=== PATIENT | female | born 2000 | race Caucasian/White ===

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

== ENCOUNTER 2020-04-27 12:43 | Emergency (ER) | payer OTHER ==
[2020-04-27 12:48] VITALS: RESP 18
[2020-04-27] MEDS ORDERED: SODIUM CHLORIDE 0.9% 1,000 ML IV STA ×2 (13:00)
[2020-04-27] MEDS ORDERED: ONDANSETRON 4 MG/2 ML VIAL IVP STA (13:00)
[2020-04-27] MEDS ORDERED: MORPHINE SULFATE 4 MG/ML SYRINGE IV STA (13:00)
--- NOTE | 2020-04-27 13:05 | ED ---
Abdominal Pain HPI - General Chief Complaint: Abdominal Pain Stated Complaint: Abd Pain Time Seen by Provider: 04/27/20 12:55 Source: patient Mode of arrival: ambulatory Limitations: no limitations - History of Present Illness Initial Comments: This 20-year-old female presents with a complaint of some right upper quadrant to mid epigastric abdominal pain. She has had this intermittently over the last 4 months. She states that it was diagnosed while she was . She delivered on March 27 and has had the episodes approximately 4 times since. She was diagnosed with gallstones through [facility]. She was told that she could not have surgery while she is . She's been working with a surgeon out of [facility] to have her gallbladder removed. She was told that she could potentially have surgery on Thursday, 3 days from now but the pain became severe today so she came to our hospital. She has had occasi onal nausea but no vomiting. No fevers or chills. No urinary symptoms. She has tried Motrin 600 mg without any relief. No other complaints or modifying factors. - Related Data Previous Rx's Medication Instructions Recorded Hydrocodone/Acetaminophen [Hycet 10 ml PO Q4HR PRN 3 Days #200 ml 04/27/20 7.5 mg-325 mg/15 ml Soln] Ondansetron [Zofran] 4 mg PO Q8HR PRN #12 tab 04/27/20 Sulfamethox-Tmp 800-160Mg [Bactrim 1 tab PO Q12HR #20 tab 04/27/20 DS 800-160 mg] Allergies Allergy/AdvReac Type Severity Reaction Status Date / Time No Known Allergies Allergy Verified 04/27/20 13:21 Review of Systems ROS Statement: Those systems with pertinent positive or pertinent negative responses have been documented in the HPI. ROS Other: All systems not noted in ROS Statement are negative. Past Medical History Past Medical History: No Reported History Additional Past Medical History / Comment(s): gall stones History of Any Multi-Drug Resistant Organisms: None Reported Past Surgical History: No Surgical Hx Reported Past Psychological History: No Psychological Hx Reported Smoking Status: Never smoker Past Alcohol Use History: None Reported Past Drug Use History: None Reported General Exam - General Exam Comments Initial Comments: GENERAL: The patient is well nourished and well hydrated. VITAL SIGNS: Heart rate, blood pressure, respiratory rate reviewed as recorded in nurse's notes. EYES: Pupils are round and reactive. Extraocular movements are intact. No conjunctival / lid redness or swelling. ENT: No external evidence of injury, swelling, or ecchymosis. Airway is patent. Throat is clear. NECK: Nontender. No swelling or evidence of injury. No subcutaneous emphysema. Trachea is midline. No thyroid mass. HEART: Regular rate and rhythm. Good peripheral pulses. LUNGS/CHEST: Breath sounds clear and equal bilaterally. No rales, rhonchi, or wheezes. No ecchymosis, subcutaneous emphysema, or tenderness. ABDOMEN: There is some mild tenderness noted into the right upper quadrant. No palpable masses or organomegaly. No peritoneal signs. No abdominal wall swelling or ecchymosis. EXTREMITIES: No extremity tenderness. Normal muscle tone and function. No thoracolumbar tenderness. NEUROLOGIC: Sensation is grossly intact. Cranial nerve exam reveals face is symmetrical, tongue is midline, speech is clear. SKIN: No abrasions or ecchymosis is noted. No induration or masses noted. PSYCHIATRIC: Alert and oriented. Appropriate behavior and judgment. Limitations: no limitations Course Vital Signs 04/27/20 12:43 Temperature 98.9 F Pulse Rate 79 Respiratory 18 Rate Blood Pressure 137/53 O2 Sat by Pulse 97 Oximetry Medical Decision Making - Medical Decision Making The patient was seen and examined. All diagnostics were reviewed. An IV is established and she is hydrated. She receives morphine 4 mg IV and Zofran 4 mg IV and has moderate to significant relief. The laboratory shows slight elevation of the transaminase levels. Remainder of labs are essentially within normal limits. The urinalysis also does show evidence of a urinary tract infection. is negative. The ultrasound shows evidence of gallstones. There is no dilation of the common bile duct, pericholecystic fluid, or gallbladder wall thickening. Overall, it is felt as though she is stable for discharge. She states that she has a surgeon through [facility] and they're planning on taking her gallbladder out on Thursday, in 3 days. It is felt as though she should continue with this plan. Symptomatic treatment will be prescribed for the weekend. Return parameters discussed. - Lab Data Result diagrams: 04/27/20 13:25 04/27/20 13:25 Lab Results 04/27/20 04/27/20 04/27/20 Range/Units 13:25 13:25 13:25 WBC 7.5 (4.0-11.0) k/uL RBC 4.40 (3.80-5.40) m/uL Hgb 12.0 (11.4-16.0) gm/dL Hct 37.5 (34.0-46.0) % MCV 85.2 (80.0-100.0) fL MCH 27.3 (25.0-35.0) pg MCHC 32.1 (31.0-37.0) g/dL RDW 13.6 (11.5-15.5) % Plt Count 349 (150-450) k/uL MPV 7.4 Neutrophils % 66 % Lymphocytes % 24 % Monocytes % 5 % Eosinophils % 2 % Basophils % 1 % Neutrophils # 4.9 (1.3-7.7) k/uL Lymphocytes # 1.8 (1.0-4.8) k/uL Monocytes # 0.4 (0-1.0) k/uL Eosinophils # 0.2 (0-0.7) k/uL Basophils # 0.1 (0-0.2) k/uL Hypochromasia Slight Sodium (137-145) mmol/L Potassium (3.5-5.1) mmol/L Chloride (98-107) mmol/L Carbon Dioxide (22-30) mmol/L Anion Gap mmol/L BUN (7-17) mg/dL Creatinine (0.52-1.04) mg/dL Est GFR (CKD-EPI)AfAm (>60 ml/min/1.73 sqM) Est GFR (CKD-EPI)NonAf (>60 ml/min/1.73 sqM) Glucose (74-99) mg/dL Calcium (8.4-10.2) mg/dL Total Bilirubin (0.2-1.3) mg/dL AST (14-36) U/L ALT (4-34) U/L Alkaline Phosphatase (38-126) U/L Total Protein (6.3-8.2) g/dL Albumin (3.5-5.0) g/dL Amylase (30-110) U/L Lipase (23-300) U/L Urine Color Yellow Urine Appearance Cloudy H (Clear) Urine pH 6.0 (5.0-8.0) Ur Specific [place] 1.034 (1.001-1.035) Urine Protein 1+ H (Negative) Urine Glucose (UA) Negative (Negative) Urine Ketones Negative (Negative) Urine Blood Negative (Negative) Urine Nitrite Negative (Negative) Urine Bilirubin Negative (Negative) Urine Urobilinogen 3.0 (<2.0) mg/dL Ur Leukocyte Esterase Large H (Negative) Urine RBC 3 (0-5) /hpf Urine WBC 21 H (0-5) /hpf Ur Squamous Epith Cells 10 H (0-4) /hpf Urine Bacteria Rare H (None) /hpf Hyaline Casts 1 (0-2) /lpf Urine Mucus Moderate H (None) /hpf Urine HCG, Qual Not Detected (Not Detectd) 04/27/20 Range/Units 13:25 WBC (4.0-11.0) k/uL RBC (3.80-5.40) m/uL Hgb (11.4-16.0) gm/dL Hct (34.0-46.0) % MCV (80.0-100.0) fL MCH (25.0-35.0) pg MCHC (31.0-37.0) g/dL RDW (11.5-15.5) % Plt Count (150-450) k/uL MPV Neutrophils % % Lymphocytes % % Monocytes % % Eosinophils % % Basophils % % Neutrophils # (1.3-7.7) k/uL Lymphocytes # (1.0-4.8) k/uL Monocytes # (0-1.0) k/uL Eosinophils # (0-0.7) k/uL Basophils # (0-0.2) k/uL Hypochromasia Sodium 139 (137-145) mmol/L Potassium 4.5 (3.5-5.1) mmol/L Chloride 104 (98-107) mmol/L Carbon Dioxide 29 (22-30) mmol/L Anion Gap 6 mmol/L BUN 12 (7-17) mg/dL Creatinine 0.91 (0.52-1.04) mg/dL Est GFR (CKD-EPI)AfAm >90 (>60 ml/min/1.73 sqM) Est GFR (CKD-EPI)NonAf >90 (>60 ml/min/1.73 sqM) Glucose 110 H (74-99) mg/dL Calcium 9.6 (8.4-10.2) mg/dL Total Bilirubin 1.1 (0.2-1.3) mg/dL AST 175 H (14-36) U/L ALT 73 H (4-34) U/L Alkaline Phosphatase 117 (38-126) U/L Total Protein 7.7 (6.3-8.2) g/dL Albumin 4.3 (3.5-5.0) g/dL Amylase 65 (30-110) U/L Lipase 236 (23-300) U/L Urine Color Urine Appearance (Clear) Urine pH (5.0-8.0) Ur Specific [place] (1.001-1.035) Urine Protein (Negative) Urine Glucose (UA) (Negative) Urine Ketones (Negative) Urine Blood (Negative) Urine Nitrite (Negative) Urine Bilirubin (Negative) Urine Urobilinogen (<2.0) mg/dL Ur Leukocyte Esterase (Negative) Urine RBC (0-5) /hpf Urine WBC (0-5) /hpf Ur Squamous Epith Cells (0-4) /hpf Urine Bacteria (None) /hpf Hyaline Casts (0-2) /lpf Urine Mucus (None) /hpf Urine HCG, Qual (Not Detectd) Disposition Clinical Impression: Gallstones, Acute abdominal pain, Nausea, Urinary tract infection, Cholec ystitis Disposition: HOME SELF-CARE Condition: Good Instructions (If sedation given, give patient instructions): Abdominal Pain (ED), Gallstones (ED), Cholecystitis (ED), Urinary Tract Infection in Women (ED) Additional Instructions: Please follow-up with your surgeon on Thursday as scheduled. Prescriptions: Sulfamethox-Tmp 800-160Mg [Bactrim DS 800-160 mg] 1 tab PO Q12HR #20 tab Hydrocodone/Acetaminophen [Hycet 7.5 mg-325 mg/15 ml Soln] 10 ml PO Q4HR PRN 3 Days #200 ml PRN Reason: Pain Ondansetron [Zofran] 4 mg PO Q8HR PRN #12 tab PRN Reason: Nausea Is patient prescribed a controlled substance at d/c from ED?: Yes When asked, does pt state using other controlled substances?: No If prescribed controlled substance>3 days was MAPS reviewed?: Prescribed <3 Days Referrals: None,Stated [Primary Care Provider] - 1-2 days Time of Disposition: 15:25
[2020-04-27 13:49] LABS: Basophils # (A) 0.1 k/uL (0-0.2); Basophils % (A) 1 %; Eosinophils # (A) 0.2 k/uL (0-0.7); Eosinophils % (A) 2 %; HCT 37.5 % (34.0-46.0); Hypochromasia Slight; Lymphocytes # (A) 1.8 k/uL (1.0-4.8); Lymphocytes % (A) 24 %; MCH 27.3 pg (25.0-35.0); MCHC 32.1 g/dL (31.0-37.0); MCV 85.2 fL (80.0-100.0); Mean Platelet Volume 7.4; Monocytes # (A) 0.4 k/uL (0-1.0); Monocytes % (A) 5 %; Neutrophils # (A) 4.9 k/uL (1.3-7.7); Neutrophils % (A) 66 %; Platelet Count 349 k/uL (150-450); RDW 13.6 % (11.5-15.5); WBC 7.5 k/uL (4.0-11.0)
--- NOTE | 2020-04-27 13:53 | US ---
EXAMINATION TYPE: US gallbladder DATE OF EXAM: 04/27/2020 COMPARISON: NONE CLINICAL HISTORY: abdominal pain. EC patient with epigastric pain and nausea; history of gallstones EXAM MEASUREMENTS: Liver Length: 14.3 cm Gallbladder Wall: 0.2 cm CBD: 0.5 cm Right Kidney: 9.3 x 5.8 x 4.3 cm Pancreas: mid and tail obscured by bowel gas Liver: attenuated posteriorly Gallbladder: multiple shadowing stones with nonmobile neck gallstones in upright position; largest g allstone = 2.2 x 1.3 x 0.8cm. Evidence for sonographic George's sign: yes CBD: wnl Right Kidney: No hydronephrosis or masses seen Poor visualization of pancreas on images today. Heterogeneous hyperechoic appearance of liver. Evalua tion for focal masses suboptimal due to the heterogeneity. Correlate for mild diffuse fatty infiltrat ion. Large mobile gallstones in gallbladder. No surrounding fluid or wall thickening. Positive sonogr aphic George's sign. IMPRESSION: Gallstones without convincing secondary ultrasound evidence for acute cholecystitis.
[2020-04-27 14:01] LABS: Appearance,Urine Cloudy (Clear); Bacteria,Urine Rare /hpf; Bilirubin,Urine Negative (Negative); Blood,Urine Negative (Negative); Color,Urine Yellow; Glucose,Urine (UA) Negative (Negative); Hyaline Casts,Urine 1 /lpf (0-2); Ketones,Urine Negative (Negative); Leukocyte Esterase,Urine Large (Negative); Mucus,Urine Moderate /hpf; Nitrite,Urine Negative (Negative); Protein,Urine 1+ (Negative); RBC,Urine 3 /hpf (0-5); Specific Gravity,Urine 1.034 (1.001-1.035); Squamous Epithelial Cell,Urine 10 /hpf (0-4); WBC,Urine 21 /hpf (0-5)
[2020-04-27 14:15] LABS: ALT 73 U/L (4-34); AST 175 U/L (14-36); African American GFR (CKD) >90 (>60 ml/min/1.73 sqM); Albumin 4.3 g/dL (3.5-5.0); Alkaline Phosphatase 117 U/L (38-126); Amylase 65 U/L (30-110); Anion Gap 6 mmol/L; Blood Urea Nitrogen 12 mg/dL (7-17); Calcium 9.6 mg/dL (8.4-10.2); Carbon Dioxide 29 mmol/L (22-30); Chloride 104 mmol/L (98-107); Glucose 110 mg/dL (74-99); Lipase 236 U/L (23-300); Non-African American GFR(CKD) >90 (>60 ml/min/1.73 sqM); Potassium 4.5 mmol/L (3.5-5.1); Sodium 139 mmol/L (137-145); Total Bilirubin 1.1 mg/dL (0.2-1.3); Total Protein 7.7 g/dL (6.3-8.2)
[2020-04-27 15:54] VITALS: BP 146/72; PULSE 72; TEMP 98.1
== END 2020-04-27 15:35 | disposition home or self-care (01) ==
LOC: EC 12:43
DX: N39.0 Urinary tract infection, site not specified (principal); K80.00 Calculus of gallbladder with acute cholecystitis without obstruction; Z32.02 Encounter for pregnancy test, result negative
CPT/HCPCS: 36415; 80053; 82150; 83690; 85025; 81001; 81025; 87086; 76705; 99284; 96374; 96375; 96361 ×2; J2270; J2405

== ENCOUNTER 2024-03-24 05:57 | Inpatient (IN) | payer BC ==
[2024-03-24] MEDS ORDERED: miSOPROStoL 200 MCG TAB RECTAL PRN (06:23)
[2024-03-24] MEDS ORDERED: CARBOPROST TROMETHAMINE 250 MCG/ML 1 ML AMP IM PRN (06:23)
[2024-03-24] MEDS ORDERED: TERBUTALINE 1 MG/ML VIAL SQ PRN (06:23)
[2024-03-24] MEDS ORDERED: TRANEXAMIC 1,000 MG/100ML-NACL 1,000 MG in EMPTY BAG 1 BAG IV PRN (06:23)
[2024-03-24] MEDS ORDERED: LIDOCAINE 0.5% (PF) 5 MG/ML (50 ML SDV) SQ PRN (06:23)
[2024-03-24] MEDS ORDERED: OXYTOCIN 10 UNIT/ML 1 ML VIAL IM PRN (06:23)
[2024-03-24] MEDS ORDERED: miSOPROStoL 200 MCG TAB PO PRN (06:23)
[2024-03-24] MEDS ORDERED: METHYLERGONOVINE 0.2 MG/ML 1 ML AMP IM PRN (06:23)
[2024-03-24] MEDS: LACTATED RINGERS 1,000 ML IV SCH (06:35)
[2024-03-24] MEDS ORDERED: BUTORPHANOL 1 MG/ML 1 ML VIAL IV PRN (06:41)
--- NOTE | 2024-03-24 06:45 | P.HPOB ---
History of Present Illness H&P Date: 03/24/24 Chief Complaint: 39-0/7 weeks, elective induction Patient is a 24-year-old 2 para 1-0-0-1 admitted at 39-0/7 weeks as established by last menstrual period and confirmed by 15-week ultrasound. She is admitted for elective induction of labor with all signs reassuring, category 1 heart rate tracing. Her has been entirely uncomplicated and group B strep status is negative. On labor and delivery, all signs are reassuring with a category 1 heart rate tracing. Obstetrical history: 2 para 1-0-0-1 with 1 term vaginal delivery which was complicated only by hemorrhage. Current statistics are listed in history of present illness. EDC of 03/31/2024 was established by last menstrual period and confirmed by 15-week ultrasound. Laboratory workup demonstrates a blood type of O+ with a negative antibody screen. Rubella status is immune. The remainder of the laboratory workup was within normal limits. Early Glucola and second trimester Glucola were both within normal limits. Group B strep status is negative. Gynecologic history: Unremarkable with no history of any infections to include STDs. Review of Systems Review of systems is confined to history of present illness. Past Medical History Past Medical History: No Reported History Additional Past Medical History / Comment(s): gall stones History of Any Multi-Drug Resistant Organisms: None Reported Past Surgical History: No Surgical Hx Reported Past Psychological History: No Psychological Hx Reported Smoking Status: Never smoker Past Alcohol Use History: None Reported Past Drug Use History: None Reported Medications and Allergies Home Medications Medication Instructions Recorded Confirmed Type Hydrocodone/Acetaminophen [Hycet 10 ml PO Q4HR PRN 3 Days #200 ml 04/27/20 03/24/24 Rx 7.5 mg-325 mg/15 ml Soln] Ondansetron [Zofran] 4 mg PO Q8HR PRN #12 tab 04/27/20 03/24/24 Rx Sulfamethox-Tmp 800-160Mg [Bactrim 1 tab PO Q12HR #20 tab 04/27/20 03/24/24 Rx DS 800-160 mg] Vit No.179/Iron/Folic 1 tab PO DAILY 03/24/24 03/24/24 History [ Tablet] Allergies Allergy/AdvReac Type Severity Reaction Status Date / Time No Known Allergies Allergy Verified 04/27/20 13:21 Exam Intake and Output 03/23/24 03/23/24 03/24/24 14:59 22:59 06:59 Other: Weight 123.377 kg In general, this is a well-developed, morbidly obese white female in no acute distress. Her heart has a regular rhythm and rate without murmur. Her lungs are clear to auscultation bilaterally in all branch. Her abdomen is obese, gravid, nondistended, has normal active bowel sounds, soft, nontender, and without any palpable masses aside from the uterine fundus. Her extremities are without any cyanosis, clubbing, or edema and are nontender to palpation bilaterally. Digital cervical examination demonstrates her cervix to be 2+ centimeters dilated, 50% effaced, with a vertex and presentation at -2 station. Artificial rupture of membranes is carried out demonstrating what appears to be clear fluid. A scalp electrode is applied in standard fashion for further monitoring. Assessment and Plan (1) Term Current Visit: Yes Status: Acute Code(s): Z34.90 - ENCNTR FOR SUPRVSN OF NORMAL , UNSP, UNSP TRIMESTER SNOMED Code(s): 60172633 Plan: The patient has been admitted for induction of labor and Pitocin augmentation has been started. She has undergone artificial rupture of membranes. She will have close maternal and surveillance and expectant management will be practiced. She is a good candidate for either IV or epidural analgesia, which ever she may choose.
[2024-03-24] MEDS: OXYTOCIN 30 UNITS/500 ML NS 30 UNIT in SALINE 1 500ML.BAG IV SCH (06:59)
[2024-03-24 07:40] LABS: Basophils % (A) 0 %; Eosinophils # (A) 0.1 k/uL (0-0.7); Eosinophils % (A) 1 %; HCT 35.2 % (34.0-46.0); HGB 11.8 gm/dL (11.4-16.0); Lymphocytes # (A) 2.1 k/uL (1.0-4.8); Lymphocytes % (A) 16 %; MCH 28.2 pg (25.0-35.0); MCHC 33.5 g/dL (31.0-37.0); Mean Platelet Volume 8.1; Monocytes # (A) 0.6 k/uL (0-1.0); Monocytes % (A) 4 %; Neutrophils # (A) 9.7 k/uL (1.3-7.7); Neutrophils % (A) 77 %; Platelet Count 202 k/uL (150-450); RDW 13.8 % (11.5-15.5); WBC 12.7 k/uL (3.8-10.6)
[2024-03-24] MEDS ORDERED: ROPIVACAINE 5 MG/ML 30 ML VIAL ONE (10:01)
[2024-03-24] MEDS ORDERED: fentaNYL (PF) 50 MCG/ML 5 ML AMP ONE (10:01)
[2024-03-24] MEDS ORDERED: SODIUM CHLORIDE 0.9% 250 ML BAG ONE (10:01)
[2024-03-24] MEDS ORDERED: diphenhydrAMINE 50 MG CAP PO PRN (16:03)
[2024-03-24] MEDS ORDERED: diphenhydrAMINE 50 MG/ML 1 ML VIAL IVP PRN ×2 (16:03)
[2024-03-24] MEDS ORDERED: ACETAMINOPHEN TAB 500 MG TAB PO PRN (16:03)
[2024-03-24] MEDS ORDERED: SIMETHICONE 80 MG CHEWABLE PO PRN (16:03)
[2024-03-24] MEDS ORDERED: IBUPROFEN 800 MG TAB PO PRN (16:03)
[2024-03-24] MEDS ORDERED: BENZOCAINE/MENTHOL SPRAY 1 GM/SPRAY AEROSOL TOPICAL PRN (16:03)
[2024-03-24] MEDS ORDERED: HYDROCORTISONE 2.5% RECTAL CREAM 30 GM TUBE RECTAL PRN (16:03)
[2024-03-24] MEDS ORDERED: ZOLPIDEM 5 MG TAB PO PRN (16:03)
[2024-03-24] MEDS ORDERED: diphenhydrAMINE 25 MG CAP PO PRN (16:03)
--- NOTE | 2024-03-24 16:08 | P.PROBDLV ---
Vaginal Delivery Note - . Vaginal Delivery Note: Patient is a 24-year-old 2 para 1-0-0-1 admitted at 39-0/7 weeks by good dating parameters. She is admitted for an elective induction of labor with all signs reassuring, category 1 heart rate tracing. Her has been entirely uncomplicated and group B strep status is negative. On labor and delivery, she had Pitocin started followed by artificial rupture of membranes for clear fluid. She made progress to the active phase of labor and had an e pidural catheter placed for analgesia. She then progressed fairly quickly through the active phase of labor to complete and pushed over the course of approximately 10 minutes to a normal spontaneous vaginal delivery of a viable 7 pound 3.9 ounce baby girl with Apgars of 9 at 1 minute and 9 at 5 minutes delivered in the right occiput anterior position. The placenta was delivered spontaneously, intact, and grossly normal with a grossly normal three-vessel cord inserted approximately 3 cm from the margin of the placental disc. There were no lacerations of the perineum, vagina, or cervix. Estimated blood loss for the case was approximately 150 mL. There were no complications. Both mother and are resting comfortably in recovery.
[2024-03-24] MEDS ORDERED: OXYTOCIN 30 UNITS/500 ML NS 30 UNIT in SALINE 1 500ML.BAG IV SCH (16:15)
[2024-03-24] MEDS ORDERED: ACETAMINOPHEN ORAL SUSP (PEDS) 3,840 MG/120 ML BOTTLE PO PRN (17:23)
[2024-03-24] MEDS: IBUPROFEN ORAL SUSP 2,400 MG/120 ML BOTTLE PO PRN (18:49)
[2024-03-24] MEDS: SENNOSIDES-DOCUSATE SODIUM 1 EACH TAB PO SCH (21:23)
[2024-03-25 07:37] LABS: Basophils % (A) 0 %; Eosinophils # (A) 0.2 k/uL (0-0.7); Eosinophils % (A) 1 %; HCT 31.5 % (34.0-46.0); HGB 10.7 gm/dL (11.4-16.0); Lymphocytes # (A) 2.5 k/uL (1.0-4.8); Lymphocytes % (A) 17 %; MCHC 33.8 g/dL (31.0-37.0); MCV 85.7 fL (80.0-100.0); Mean Platelet Volume 7.8; Monocytes # (A) 0.7 k/uL (0-1.0); Monocytes % (A) 5 %; Neutrophils # (A) 11.3 k/uL (1.3-7.7); Neutrophils % (A) 76 %; Platelet Count 195 k/uL (150-450); RBC 3.68 m/uL (3.80-5.40); RDW 13.4 % (11.5-15.5); WBC 14.9 k/uL (3.8-10.6)
[2024-03-25 08:44] VITALS: RESP 18; TEMP 97.7
--- NOTE | 2024-03-25 11:22 | P.DS ---
Providers Date of admission: 03/24/24 05:57 Expected date of discharge: 03/25/24 Attending physician: Yohan Mullins Primary care physician: Stated None - Discharge Diagnosis(es) (1) Term Current Visit: Yes Status: Acute (2) Normal spontaneous vaginal delivery Current Visit: Yes Status: Acute Hospital Course: Patient is a 24-year-old 2 para 1-0-0-1 admitted at 39-0/7 weeks by good dating parameters. She is admitted for elective induction with all signs reassuring, category 1 heart rate tracing. Her was uncomplicated and group B strep status is negative. On labor delivery, she had Pitocin augmentation started and underwent artificial rupture of membranes for clear fluid. She made progress to the active phase of labor and had an epidural catheter placed for analgesia. She then progressed steadily throughout the day to complete and pushed over the course of approximately 10 minutes to a normal spontaneous vaginal delivery of a viable 7 pound 3.9 ounce baby boy with Apgars of 9 at 1 minute and 9 at 5 minutes. Her course was unremarkable with vital signs remaining stable and her temperature was afebrile throughout. She was deemed stable for discharge on day #1 and was discharged home to follow-up in the office in 6 weeks time routinely. Discharge instructions included calling for any significantly increased bleeding or foul-smelling lochia, significantly increased fever or abdominal pain, perineal complaints, breast complaints, or anything else that concerned her. She was additionally instructed to have nothing in the vagina for at least 6 weeks time to include intercourse. She understood her instructions and agrees to follow-up as noted above. Discharge medications included only [id number] analgesic pain medications. Maternal blood type is O+ and rubella status is immune. Procedures: #1. Pitocin induction #2. Artificial rupture of membranes #3. Epidural analgesia #4. Normal spontaneous vaginal delivery Patient Condition at Discharge: Stable Plan - Discharge Summary New Discharge Prescriptions: No Action Vit No.179/Iron/Folic [ Tablet] 1 tab PO DAILY Discharge Medication List Vit No.179/Iron/Folic [ Tablet] 1 tab PO DAILY 03/24/24 [History] Follow up Appointment(s)/Referral(s): Yohan Mullins MD [STAFF PHYSICIAN] - 6 Weeks Discharge Disposition: HOME SELF-CARE
[2024-03-25 16:13] VITALS: BP 127/79; PULSE 73
== END 2024-03-25 16:20 | disposition home or self-care (01) | DRG 807 ==
LOC: 4FBP 05:57
PROVIDERS: ADMIT Obstetrics & Gynecology; ATTEND Obstetrics & Gynecology
PROC: 10E0XZZ Delivery of Products of Conception, External Approach (ICD-10-PCS; principal; 2024-03-24)
PROC: 3E033VJ Introduction of Other Hormone into Peripheral Vein, Percutaneous Approach (ICD-10-PCS; 2024-03-24)
PROC: 10907ZC Drainage of Amniotic Fluid, Therapeutic from Products of Conception, Via Natural or Artificial Opening (ICD-10-PCS; 2024-03-24)
DX: O99.214 Obesity complicating childbirth (principal); Z37.0 Single live birth; E66.01 Morbid (severe) obesity due to excess calories; Z3A.39 39 weeks gestation of pregnancy; Z87.59 Personal history of other complications of pregnancy, childbirth and the puerperium
CPT/HCPCS: 85025; 86850; 86900; 86901

== ENCOUNTER 2024-08-14 17:20 | Emergency (ER) | payer BC, OTHER ==
--- NOTE | 2024-08-14 17:52 | ED ---
Lower Extremity Injury HPI - General Chief Complaint: Extremity Injury, Lower Stated Complaint: left foot pain Time Seen by Provider: 08/14/24 17:27 Source: patient, RN notes reviewed Mode of arrival: wheelchair Limitations: no limitations - History of Present Illness Initial Comments: 24-year-old female presenting to emergency department for complaints of left foot pain. Patient states that at 1030 this morning she was walking when she tripped injuring the top of her left foot. Patient denies hitting her head, falling, loss conscious time injury. Is complaining of pain to the top of her left foot. Has been able to ambulate since the injury. States she has not taken any medications to alleviate symptoms. No other acute complaints this time. - Related Data Home Medications Medication Instructions Recorded Confirmed Vit No.179/Iron/Folic 1 tab PO DAILY 03/24/24 03/24/24 [ Tablet] Allergies Allergy/AdvReac Type Severity Reaction Status Date / Time No Known Allergies Allergy Verified 08/14/24 17:27 Review of Systems ROS Statement: Those systems with pertinent positive or pertinent negative responses have been documented in the HPI. ROS Other: All systems not noted in ROS Statement are negative. Past Medical History Past Medical History: No Reported History Additional Past Medical History / Comment(s): gall stones History of Any Multi-Drug Resistant Organisms: None Reported Past Surgical History: No Surgical Hx Reported Past Anesthesia/Blood Transfusion Reactions: No Reported Reaction Past Psychological History: No Psychological Hx Reported Smoking Status: Never smoker Past Alcohol Use History: None Reported Past Drug Use History: None Reported General Exam Limitations: no limitations General appearance: alert, in no apparent distress ENT exam: Present: normal exam, mucous membranes moist Respiratory exam: Present: normal lung sounds bilaterally. Absent: respiratory distress, wheezes, rales, rhonchi, stridor Cardiovascular Exam: Present: regular rate, normal rhythm, normal heart sounds. Absent: systolic murmur, diastolic murmur, rubs, gallop, clicks GI/Abdominal exam: Present: soft, normal bowel sounds. Absent: distended, tenderness, guarding, rebound, rigid Left Foot/Toe exam: Present: full ROM, tenderness, swelling, ecchymosis. Absent: abrasion Neurovascular tendon exam: Present: no vascular compromise Back exam: Present: normal inspection Course Vital Signs 08/14/24 17:23 Temperature 98.3 F Pulse Rate 90 Respiratory 16 Rate Blood Pressure 150/82 O2 Sat by Pulse 99 Oximetry Medical Decision Making - Medical Decision Making Was pt. sent in by a medical professional or institution (, ZA, PERSONAL SERVICE REPRESENTATIVE, urgent care, hospital, or long-term...) When possible be specific @ -No Did you speak to anyone other than the patient for history (EMS, parent, family, police, friend...)? What history was obtained from this source @ -No Did you review nursing and triage notes (agree or disagree)? Why? @ -I reviewed and agree with nursing and triage notes Were old charts reviewed (outside hosp., previous admission, EMS record, old EKG, old radiological studies, urgent care reports/EKG's, long-term records)? Report findings @ -No old charts were reviewed Differential Diagnosis (chest pain, altered mental status, abdominal pain women, abdominal pain men, vaginal bleeding, weakness, fever, dyspnea, syncope, headache, dizziness, GI bleed, back pain, seizure, CVA, palpatations, mental health, musculoskeletal)? @ -Differential Musculoskeletal Muscular strain, contusion, ligament sprain, fracture, arthritis, septic arthritis, bursitis, cellulitis, muscle spasm, nerve compression, DVT, arterial occlusion, herpes zoster, electrolyte abnormality, tumor.... This is not meant to be in all inclusive list EKG interpreted by me (3pts min.). @ -None X-rays interpreted by me (1pt min.). @ -X-ray of the left foot is unremarkable CT interpreted by me (1pt min.). @ -None done U/S interpreted by me (1pt. min.). @ -None done What testing was considered but not performed or refused? (CT, X-rays, U/S, labs)? Why? @ -None What meds were considered but not given or refused? Why? @ -None Did you discuss the management of the patient with other professionals (professionals i.e. , ZA, PERSONAL SERVICE REPRESENTATIVE, lab, RT, psych nurse, perinatal social worker, retail stock clerk, teacher, network security officer, telephonic case manager)? Give summary @ -No Was smoking cessation discussed for >3mins.? @ -No Was critical care preformed (if so, how long)? @ -No Were there social determinants of health that impacted care today? How? (Homelessness, low income, unemployed, alcoholism, drug addiction, transportat ion, low edu. Level, literacy, decrease access to med. care, senior care, rehab)? @ -No Was there de-escalation of care discussed even if they declined (Discuss DNR or withdrawal of care, Hospice)? DNR status @ -No What co-morbidities impacted this encounter? (DM, HTN, Smoking, COPD, CAD, Cancer, CVA, ARF, Chemo, Hep., AIDS, mental health diagnosis, sleep apnea, morbid obesity)? @ -None Was patient admitted / discharged? Hospital course, mention meds given and route, prescriptions, significant lab abnormalities, going to OR and other pertinent info. @ -Discharge. 24-year-old female presents the emergency room with complaints of left anterior foot pain. There is noted ecchymosis and soft tissue swelling of the anterior midfoot. Neurovascularly intact. Is provided with dose of IM Toradol for pain relief. X-ray imaging is unremarkable. She is placed in a Richie wrap and recommended continue supportive treatment. Case discussed with Dr. Perez Undiagnosed new problem with uncertain prognosis? @ -No Drug Therapy requiring intensive monitoring for toxicity (Heparin, Nitro, Insulin, Cardizem)? @ -No Were any procedures done? @ -No Diagnosis/symptom? @ -foot sprain Acute, or Chronic, or Acute on Chronic? @ -acute Uncomplicated (without systemic symptoms) or Complicated (systemic symptoms)? @ -uncomplicated Side effects of treatment? @ -No Exacerbation, Progression, or Severe Exacerbation? @ -No Poses a threat to life or bodily function? How? (Chest pain, USA, SD, pneumonia, PE, COPD, DKA, ARF, appy, cholecystitis, CVA, Diverticulitis, Homicidal, Suicidal, threat to staff... and all critical care pts) @ -No Disposition Clinical Impression: Foot sprain Disposition: HOME SELF-CARE Condition: Stable Instructions (If sedation given, give patient instructions): Foot Sprain (ED) Additional Instructions: Please return to the Emergency Department if symptoms worsen or any other concerns. Is patient prescribed a controlled substance at d/c from ED?: No Referrals: None,Stated [Primary Care Provider] - 1-2 days Time of Disposition: 18:17
[2024-08-14] MEDS: KETOROLAC 15 MG/ML 1 ML VIAL IM STA (18:04)
--- NOTE | 2024-08-14 18:16 | XR ---
EXAMINATION TYPE: XR foot complete LT DATE OF EXAM: 08/14/2024 6:07 PM INDICATION: Patient age:Female; 24 years old; Reason for study: pain, ecchymosis, swelling; PHH. pain COMPARISON: None TECHNIQUE: The left foot was examined in the AP, oblique, and lateral projections. FINDINGS: No evidence of any acute osseous pathology. Dorsal midfoot soft tissue swelling. Joints are preserve d. No radiopaque foreign body. IMPRESSION: 1. No evidence of acute fracture. 2. Dorsal midfoot soft tissue swelling. [facility], , 08/14/2024 6:13 PM
[2024-08-14 18:31] VITALS: BP 152/84; PULSE 86; RESP 20; TEMP 98
== END 2024-08-14 18:29 | disposition home or self-care (01) ==
LOC: EC 17:20
DX: S93.602A Unspecified sprain of left foot, initial encounter (principal); W01.0XXA Fall on same level from slipping, tripping and stumbling without subsequent striking against object, initial encounter; Y93.01 Activity, walking, marching and hiking
CPT/HCPCS: 73630; 99283; 96372; J1885